=== PATIENT | female | born 1990 | race Caucasian/White ===

== ENCOUNTER 2019-02-01 12:49 | Emergency (ER) | payer OTHER ==
[~2019-02-01] VITALS: Ht 162.6 cm; Wt 97.1 kg
[2019-02-01 12:55] VITALS: BP 117/68; Ht 162.6 cm; Wt 97.1 kg
== END 2019-02-01 14:14 | disposition home or self-care (01) ==
LOC: ED 12:49
DX: S63.502A Unspecified sprain of left wrist, initial encounter (principal); Z88.0 Allergy status to penicillin; W07.XXXA Fall from chair, initial encounter; Y93.9 Activity, unspecified; Y92.89 Other specified places as the place of occurrence of the external cause; Y99.8 Other external cause status

== ENCOUNTER 2019-12-11 09:39 | Emergency (ER) | payer OTHER ==
[~2019-12-11] VITALS: Ht 162.6 cm; Wt 92.5 kg
[2019-12-11 09:43] VITALS: Ht 162.6 cm; Wt 92.5 kg
[2019-12-11 11:29] LABS: BASOPHIL % 0.9 % (0-2); PLATELET COUNT 199 x10^3mcL (130-400); RED CELL DISTRIBUTION WIDTH 13.2 % (11.5-14.5)
[2019-12-11 11:35] LABS: ALBUMIN 3.7 g/dL (3.4-5.0); ALKALINE PHOSPHATASE 74 U/L (46-116); ALT/SGPT 25 U/L (14-59); AST/SGOT 16 U/L (15-37); BILIRUBIN TOTAL 0.2 mg/dL (0.20-1.00); CALCIUM 8.6 mg/dL (8.5-10.1); CARBON DIOXIDE 27.5 mmol/L (21-32); CHLORIDE SERUM 104 mmol/L (98-107); CREATININE SERUM 0.9 mg/dL (0.6-1.0); GFR1 > 60 mL/min; GLUCOSE SERUM 87 mg/dL (74-106); POTASSIUM SERUM 4.1 mmol/L (3.5-5.1); SODIUM SERUM 140 mmol/L (136-145); TOTAL PROTEIN, SERUM 8.1 g/dL (6.4-8.2)
[2019-12-11 12:16] LABS: UA SPECIFIC GRAVITY 1.015 (1.005-1.035); microscopic required? YES; urine erythrocyte 3+ (NEGATIVE)
[2019-12-11 15:15] VITALS: BP 124/75
== END 2019-12-11 15:15 | disposition home or self-care (01) ==
LOC: ED 09:39
PROVIDERS: Emergency Medicine
DX: H04.002 Unspecified dacryoadenitis, left lacrimal gland (principal); H10.9 Unspecified conjunctivitis; Z98.890 Other specified postprocedural states; Z88.0 Allergy status to penicillin
CPT/HCPCS: J1885; J7030; Q9967

== ENCOUNTER 2020-06-09 19:20 | Emergency (ER) | payer OTHER ==
[~2020-06-09] VITALS: Ht 162.6 cm; Wt 98.0 kg
[2020-06-09 19:30] VITALS: Ht 162.6 cm; Wt 98.0 kg
[2020-06-09 20:36] LABS: BASOPHIL % 0.3 % (0-2); PLATELET COUNT 221 x10^3mcL (130-400); RED CELL DISTRIBUTION WIDTH 13.4 % (11.5-14.5)
[2020-06-09 20:51] LABS: CALCIUM 8.5 mg/dL (8.5-10.1); CARBON DIOXIDE 26.3 mmol/L (21-32); CREATININE SERUM 1.2 mg/dL (0.6-1.0)
[2020-06-09 20:56] LABS: ALBUMIN 3.7 g/dL (3.4-5.0); BILIRUBIN TOTAL 0.31 mg/dL (0.20-1.00); C REACTIVE PROTEIN 0.4 mg/dL (<=0.9); TOTAL PROTEIN, SERUM 7.4 g/dL (6.4-8.2)
[2020-06-09 23:16] VITALS: BP 103/62
== END 2020-06-09 23:16 | disposition home or self-care (01) ==
LOC: ED 19:20
PROVIDERS: Emergency Medicine
DX: R10.31 Right lower quadrant pain (principal); Z88.0 Allergy status to penicillin; Z98.890 Other specified postprocedural states
CPT/HCPCS: J1885; J7030